=== PATIENT | female | born 1960 | race Caucasian/White ===

== ENCOUNTER → 2016-10-20 | Outpatient (CLI) | payer BC | LOC: BHSO 13:07 | DX: F33.41 Major depressive disorder, recurrent, in partial remission (principal) | CPT/HCPCS: 90791-AI ==

== ENCOUNTER → 2016-11-24 | Outpatient (CLI) | payer BC | LOC: BHSO 15:30 | DX: F31.81 Bipolar II disorder (principal) ==

== ENCOUNTER → 2016-12-15 | Outpatient (CLI) | payer BC | LOC: BHSO 08:49 | DX: F90.0 Attention-deficit hyperactivity disorder, predominantly inattentive type (principal) ==

== ENCOUNTER → 2017-02-27 | Outpatient (CLI) | payer BC | LOC: BHSO 15:29 | DX: F31.81 Bipolar II disorder (principal) | CPT/HCPCS: G0463 ==

== ENCOUNTER → 2017-07-03 | Outpatient (CLI) | payer BC | LOC: BHSO 14:02 | DX: F90.0 Attention-deficit hyperactivity disorder, predominantly inattentive type (principal) | CPT/HCPCS: G0463 ==

== ENCOUNTER → 2017-08-13 | Outpatient (CLI) | payer BC | LOC: BHSO 14:22 | DX: F90.0 Attention-deficit hyperactivity disorder, predominantly inattentive type (principal) | CPT/HCPCS: G0463 ==

== ENCOUNTER → 2017-08-23 | Outpatient (CLI) | payer BC | LOC: BHSO 13:22 | DX: F31.81 Bipolar II disorder (principal) | CPT/HCPCS: G0463 ==

== ENCOUNTER → 2017-09-25 | Outpatient (CLI) | payer BC | LOC: BHSO 16:00 | DX: F90.0 Attention-deficit hyperactivity disorder, predominantly inattentive type (principal) | CPT/HCPCS: G0463 ==

== ENCOUNTER → 2017-11-29 | Outpatient (CLI) | payer BC | LOC: BHSO 11:13 | DX: F90.0 Attention-deficit hyperactivity disorder, predominantly inattentive type (principal) | CPT/HCPCS: G0463 ==

== ENCOUNTER → 2017-12-21 | Outpatient (CLI) | payer BC | LOC: BHSO 08:02 | DX: F31.81 Bipolar II disorder (principal) | CPT/HCPCS: G0463 ==

== ENCOUNTER → 2018-02-08 | Outpatient (CLI) | payer BC | LOC: BHSO 16:18 | DX: F90.0 Attention-deficit hyperactivity disorder, predominantly inattentive type (principal) | CPT/HCPCS: G0463 ==

== ENCOUNTER → 2018-04-29 | Outpatient (CLI) | payer BC | LOC: BHSO 16:18 | DX: F90.0 Attention-deficit hyperactivity disorder, predominantly inattentive type (principal) | CPT/HCPCS: G0463 ==

== ENCOUNTER → 2018-05-17 | Outpatient (CLI) | payer BC | LOC: BHSO 08:36 | DX: F41.1 Generalized anxiety disorder (principal) | CPT/HCPCS: G0463 ==

== ENCOUNTER → 2018-06-27 | Outpatient (CLI) | payer BC | LOC: BHSO 16:10 | DX: F90.0 Attention-deficit hyperactivity disorder, predominantly inattentive type (principal) | CPT/HCPCS: G0463 ==

== ENCOUNTER → 2018-08-06 | Outpatient (CLI) | payer BC | LOC: BHSO 10:12 | DX: F90.0 Attention-deficit hyperactivity disorder, predominantly inattentive type (principal) | CPT/HCPCS: G0463 ==

== ENCOUNTER → 2018-08-19 | Outpatient (CLI) | payer BC | LOC: BHSO 14:06 | DX: F90.0 Attention-deficit hyperactivity disorder, predominantly inattentive type (principal) | CPT/HCPCS: G0463 ==

== ENCOUNTER → 2018-11-12 | Outpatient (CLI) | payer BC | LOC: BHSO 16:16 | DX: F33.42 Major depressive disorder, recurrent, in full remission (principal) | CPT/HCPCS: G0463 ==

== ENCOUNTER → 2019-01-10 | Outpatient (CLI) | payer BC | LOC: BHSO 16:07 | DX: F90.0 Attention-deficit hyperactivity disorder, predominantly inattentive type (principal) | CPT/HCPCS: G0463 ==

== ENCOUNTER → 2019-02-18 | Outpatient (CLI) | payer BC | LOC: MC.RAD 16:30 | DX: Z12.31 Encounter for screening mammogram for malignant neoplasm of breast (principal); Z80.41 Family history of malignant neoplasm of ovary; Z80.3 Family history of malignant neoplasm of breast ==

== ENCOUNTER → 2019-02-18 | Outpatient (CLI) | payer BC | LOC: BHSO 15:40 | DX: F90.0 Attention-deficit hyperactivity disorder, predominantly inattentive type (principal) | CPT/HCPCS: G0463 ==

== ENCOUNTER → 2019-03-13 | Outpatient (CLI) | payer BC | LOC: BHSO 15:52 | DX: F90.0 Attention-deficit hyperactivity disorder, predominantly inattentive type (principal) | CPT/HCPCS: G0463 ==

== ENCOUNTER → 2019-09-19 | Outpatient (CLI) | payer BC | LOC: BHSO 08:08 | DX: F41.1 Generalized anxiety disorder (principal) | CPT/HCPCS: G0463 ==

== ENCOUNTER → 2019-09-29 | Outpatient (CLI) | payer BC | LOC: COL.LAB 08:00 → SDCO 10-03 10:00 → EDSTATUS 10-03 10:00 | DX: R19.4 Change in bowel habit (principal); R63.4 Abnormal weight loss; Z20.828 Contact with and (suspected) exposure to other viral communicable diseases ==

== ENCOUNTER → 2019-11-21 | Outpatient (CLI) | payer BC | LOC: BHSO 16:19 | DX: F90.0 Attention-deficit hyperactivity disorder, predominantly inattentive type (principal) | CPT/HCPCS: G0463 ==

== ENCOUNTER → 2021-10-17 | Outpatient (CLI) | payer BC | LOC: MC.RAD 14:54 | DX: Z12.31 Encounter for screening mammogram for malignant neoplasm of breast (principal); N64.89 Other specified disorders of breast ==